=== PATIENT | female | born 1990 | race Caucasian/White ===

== ENCOUNTER 2025-06-11 09:22 | Outpatient (CLI) | payer MEDICAID, OTHER | END 2025-06-11 09:23 | disposition home or self-care (01) | LOC: MADLAB 09:22 | PROVIDERS: ATTEND Obstetrics & Gynecology | DX: O09.519 Supervision of elderly primigravida, unspecified trimester (principal); O34.219 Maternal care for unspecified type scar from previous cesarean delivery | CPT/HCPCS: 36415; 82951; 82952 ==